=== PATIENT | female | born 1950 | race Caucasian/White ===

== ENCOUNTER 2019-01-19 11:12 | Inpatient (IN) | payer OTHER, MEDICAID ==
[~2019-01-19] VITALS: Ht 162.6 cm; Wt 74.8 kg
[~2019-01-19 11:12] MED LIST: ACET325T53 PO; AMI200 PO; ASCO-339 PO; ASCO125T PO; CARV25TA55 PO; CRAN450C PO; CYM30 PO; DIPH25CA83 PO; DOCU-144 PO; FURO-150 PO; HYDR2TAB34 PO; LEVA1.2527 NEB; LEVE500T9 PO; LEVO25TA2 PO; LIP10 PO; LORA-259 PO; LOVI40 SQ; LYR50 PO; MELO15TA13 PO; MOM PO; MORP15TA60 PO; MULT PO; NORT10CA PO; ONDA4TAB22 SL; PHEN100C4 PO; PRO40 PO; SENN8.6T19 PO; SER25 PO; TRAM50TA92 PO; ZIN220 PO
[2019-01-19 11:15] VITALS: BP_SYST 128
[2019-01-19] MEDS ORDERED: NS 500 ML IV ONE (12:00)
[2019-01-19 12:45] LABS: HEMATOCRIT 42.8 % (36-48); HEMOGLOBIN 14.4 g/dL (12.0-16.0); MEAN CORPUSCULAR VOLUME 92 fL (79.0-98.0); RED BLOOD CELL COUNT(AUTO) 4.67 MIL/uL (4.2-6.2); WHITE BLOOD COUNT (AUTO) 10.9 K/uL (4.8-10.8)
[2019-01-19 12:46] LABS: MEAN CORPUSCULAR HEMOGLOBIN 31 pg (27-31); MEAN CORPUSCULAR HGB CONC 34 % (32-36); PLATELET COUNT (AUTO) 133 K/uL (130-430); RED CELL DISTRIBUTION WIDTH 13.4 % (9.0-15.0)
[2019-01-19 12:49] LABS: CALCIUM 8.5 mg/dL (8.4-11.0); CREATININE 0.66 mg/dL (0.55-1.30); POTASSIUM 4.1 mmol/L (3.5-5.1)
[2019-01-19 12:53] LABS: PROTHROMBIN TIME 10.2 SECS (9.5-12.5)
[2019-01-19 12:54] LABS: TOTAL BILIRUBIN 0.2 mg/dL (0.0-1.0)
[2019-01-19 13:03] LABS: NEUTROPHILS % (AUTO) 73.4 % (40.0-70.0)
[2019-01-19 13:04] LABS: BASOPHILS # (AUTO) 0.1 K/uL (0.0-0.2); BASOPHILS % (AUTO) 0.7 % (0.0-2.0); EOSINOPHILS # (AUTO) 0.6 K/uL (0.0-0.4); EOSINOPHILS % (AUTO) 5.5 % (0.0-4.0); LYMPHOCYTES # (AUTO) 1.2 K/uL (1.0-5.5); LYMPHOCYTES % (AUTO) 11.4 % (20.5-51.5)
[2019-01-19] MEDS ORDERED: NACL 0.9% 1,000 ML IV ONE (15:00)
[2019-01-19] MEDS: POTASSIUM CHLORIDE 20 MEQ in D5/0.45 NS 1,000 ML IV SCH (15:03)
[2019-01-19 16:21] VITALS: BP_SYST 128
[2019-01-19 16:30] VITALS: BP_SYST 163
[2019-01-19] MEDS ORDERED: DOCUSATE SODIUM 100 MG CAPSULE PO PRN (19:15)
[2019-01-19] MEDS ORDERED: LevALBUTEROL HCL 1.25 MG/0.5 ML *CONC.* VIAL.NEB (XOPENEX CONC.) INH PRN (19:15)
[2019-01-19] MEDS ORDERED: LORazepam 1 MG TABLET PO PRN (19:15)
[2019-01-19] MEDS ORDERED: traMADol HCL HCL 50 MG TABLET (ULTRAM) PO PRN (19:15)
[2019-01-19] MEDS ORDERED: HYDROmorphone 2 MG TAB PO PRN (19:15)
[2019-01-19] MEDS ORDERED: DIPHENHYDRAMINE HCL 25 MG CAPSULE PO PRN (19:15)
[2019-01-19 20:00] VITALS: BP_SYST 141
[2019-01-19] MEDS: SENNOSIDES 8.6 MG TABLET PO SCH (21:00)
[2019-01-19] MEDS: PREGABALIN 25 MG CAPSULE (LYRICA) PO SCH (21:00)
[2019-01-19] MEDS: levETIRAcetam 500 MG TABLET PO SCH (21:57)
[2019-01-19] MEDS: NORTRIPTYLINE HCL 10 MG CAPSULE PO SCH (21:57)
[2019-01-19] MEDS: MILK OF MAGNESIA 30 ML UDC PO SCH (21:57)
[2019-01-19] MEDS: CARVEDILOL 25 MG TABLET (COREG) PO SCH (21:58)
[2019-01-19] MEDS: PHENYTOIN 100 MG CAPSULE PO SCH (21:59)
[2019-01-19] MEDS: MORPHINE SULFATE 15 MG TABLET.ER PO SCH (21:59)
[2019-01-19] MEDS: QUEtiapine FUMARATE 25 MG TABLET PO SCH (22:00)
[2019-01-19] MEDS: MELOXICAM 7.5 MG TABLET PO SCH (22:00)
[2019-01-19] MEDS: ATORVASTATIN 10 MG TABLET PO SCH (22:00)
[2019-01-19] MEDS: CEFEPIME 1 GM in D5W 50 ML IV SCH (22:05)
[2019-01-19] MEDS: LevALBUTEROL HCL 1.25 MG/0.5 ML *CONC.* VIAL.NEB (XOPENEX CONC.) INH SCH (23:28)
[2019-01-19] MEDS ORDERED: KCL 20 mEq in D5/0.45NS 1000mL 1,000 ML IV SCH ×2 (23:30→23:45)
[2019-01-19 23:33] VITALS: BP_SYST 163
[2019-01-20] MEDS ORDERED: KCL 10 mEq in D5/0.45NS 1000mL 1,000 ML IV ONE (00:16)
[2019-01-20 00:19] VITALS: BP_SYST 126
[2019-01-20] MEDS: KCL 20 mEq in D5/0.45NS 1000mL 1,000 ML IV SCH ×2 (00:35→17:23)
[2019-01-20 03:52] LABS: BILIRUBIN,URINE NEGATIVE (NEGATIVE); BLOOD, URINE NEGATIVE (NEGATIVE); CLARITY/URINE CLOUDY (CLEAR); COLOR,URINE YELLOW (YELLOW); GLUCOSE,URINE NEGATIVE (NEGATIVE); KETONES,URINE NEGATIVE (NEGATIVE); LEUKOCYTE ESTERASE ,URINE 1+ (NEGATIVE); NITRITE, URINE POSITIVE (NEGATIVE); PROTEIN URINE 1+ (NEGATIVE); UROBILINOGEN,URINE 0.2 (0.2-1.0)
[2019-01-20 04:06] LABS: BACTERIA,URINE MODERATE /HPF (None Seen); RBC,URINE 0-3 /HPF (0-3)
[2019-01-20] MEDS: PANTOPRAZOLE SODIUM 40 MG TAB PO SCH (06:29)
[2019-01-20] MEDS: LEVOTHYROXINE SODIUM 0.025 MG TABLET PO SCH (06:29)
[2019-01-20] MEDS: LevALBUTEROL HCL 1.25 MG/0.5 ML *CONC.* VIAL.NEB (XOPENEX CONC.) INH SCH ×3 (07:27→23:28)
[2019-01-20 08:25] VITALS: BP_SYST 111
[2019-01-20] MEDS: CEFEPIME 1 GM in D5W 50 ML IV SCH ×2 (08:39→21:36)
[2019-01-20] MEDS: CARVEDILOL 25 MG TABLET (COREG) PO SCH ×2 (08:40→21:37)
[2019-01-20] MEDS: MELOXICAM 7.5 MG TABLET PO SCH ×2 (08:40→21:38)
[2019-01-20] MEDS: MORPHINE SULFATE 15 MG TABLET.ER PO SCH ×2 (08:40→21:38)
[2019-01-20] MEDS: levETIRAcetam 500 MG TABLET PO SCH ×2 (08:40→21:38)
[2019-01-20] MEDS: ASCORBIC ACID 500 MG TABLET PO SCH (08:41)
[2019-01-20] MEDS: ACETAMINOPHEN 325 MG TABLET PO SCH (08:41)
[2019-01-20] MEDS: MULTIVITAMINS TAB 1 TABLET PO SCH (08:41)
[2019-01-20] MEDS: DULoxetine HCL 30 MG CAPSULE.DR (CYMBALTA) PO SCH (08:41)
[2019-01-20] MEDS: QUEtiapine FUMARATE 25 MG TABLET PO SCH ×3 (08:41→21:39)
[2019-01-20] MEDS: PREGABALIN 25 MG CAPSULE (LYRICA) PO SCH ×2 (08:41→21:38)
[2019-01-20] MEDS: AMIODARONE HCL 200 MG TABLET PO SCH (08:41)
[2019-01-20] MEDS: ENOXAPARIN SODIUM 40 MG/0.4 ML SYRINGE SQ SCH (08:42)
[2019-01-20] MEDS ORDERED: NON-FORMULARY MEDICATION (Ascorbic Acid (Vitamin C) 500 MG) PO SCH (09:00)
[2019-01-20 12:31] VITALS: BP_SYST 136
[2019-01-20 16:54] VITALS: BP_SYST 137
[2019-01-20 20:00] VITALS: BP_SYST 135
[2019-01-20] MEDS: SENNOSIDES 8.6 MG TABLET PO SCH (21:00)
[2019-01-20] MEDS: MILK OF MAGNESIA 30 ML UDC PO SCH (21:38)
[2019-01-20] MEDS: PHENYTOIN 100 MG CAPSULE PO SCH (21:38)
[2019-01-20] MEDS: ATORVASTATIN 10 MG TABLET PO SCH (21:38)
[2019-01-20] MEDS: NORTRIPTYLINE HCL 10 MG CAPSULE PO SCH (21:39)
[2019-01-20 22:55] VITALS: BP_SYST 125
[2019-01-21] VITALS: BP_SYST 138
[2019-01-21] MEDS: PANTOPRAZOLE SODIUM 40 MG TAB PO SCH (06:03)
[2019-01-21] MEDS: LEVOTHYROXINE SODIUM 0.025 MG TABLET PO SCH (06:03)
[2019-01-21] MEDS: KCL 20 mEq in D5/0.45NS 1000mL 1,000 ML IV SCH ×2 (06:04→19:16)
[2019-01-21] MEDS: LevALBUTEROL HCL 1.25 MG/0.5 ML *CONC.* VIAL.NEB (XOPENEX CONC.) INH SCH ×3 (07:47→23:23)
[2019-01-21 08:00] VITALS: BP_SYST 115
[2019-01-21] MEDS: AMIODARONE HCL 200 MG TABLET PO SCH (09:00)
[2019-01-21] MEDS: CARVEDILOL 25 MG TABLET (COREG) PO SCH ×2 (09:00→21:27)
[2019-01-21] MEDS: CEFEPIME 1 GM in D5W 50 ML IV SCH ×2 (09:33→21:17)
[2019-01-21] MEDS: ACETAMINOPHEN 325 MG TABLET PO SCH (09:34)
[2019-01-21] MEDS: PREGABALIN 25 MG CAPSULE (LYRICA) PO SCH ×2 (09:34→21:22)
[2019-01-21] MEDS: QUEtiapine FUMARATE 25 MG TABLET PO SCH ×3 (09:34→21:33)
[2019-01-21] MEDS: ASCORBIC ACID 500 MG TABLET PO SCH (09:35)
[2019-01-21] MEDS: MORPHINE SULFATE 15 MG TABLET.ER PO SCH ×2 (09:35→21:00)
[2019-01-21] MEDS: DULoxetine HCL 30 MG CAPSULE.DR (CYMBALTA) PO SCH (09:35)
[2019-01-21] MEDS: levETIRAcetam 500 MG TABLET PO SCH ×2 (09:35→21:27)
[2019-01-21] MEDS: MULTIVITAMINS TAB 1 TABLET PO SCH (09:35)
[2019-01-21] MEDS: MELOXICAM 7.5 MG TABLET PO SCH ×2 (09:36→21:26)
[2019-01-21] MEDS: ENOXAPARIN SODIUM 40 MG/0.4 ML SYRINGE SQ SCH (09:41)
[2019-01-21 12:45] VITALS: BP_SYST 122
[2019-01-21 16:27] VITALS: BP_SYST 128
[2019-01-21 20:30] VITALS: BP_SYST 151
[2019-01-21] MEDS: SENNOSIDES 8.6 MG TABLET PO SCH (21:00)
[2019-01-21] MEDS: ATORVASTATIN 10 MG TABLET PO SCH (21:26)
[2019-01-21] MEDS: NORTRIPTYLINE HCL 10 MG CAPSULE PO SCH (21:27)
[2019-01-21] MEDS: MILK OF MAGNESIA 30 ML UDC PO SCH (21:27)
[2019-01-21] MEDS: PHENYTOIN 100 MG CAPSULE PO SCH (21:32)
[2019-01-22 00:25] VITALS: BP_SYST 102
[2019-01-22] MEDS: PANTOPRAZOLE SODIUM 40 MG TAB PO SCH (06:00)
[2019-01-22] MEDS: KCL 20 mEq in D5/0.45NS 1000mL 1,000 ML IV SCH (06:08)
[2019-01-22] MEDS: LEVOTHYROXINE SODIUM 0.025 MG TABLET PO SCH (06:09)
[2019-01-22 06:47] LABS: CALCIUM 8.1 mg/dL (8.4-11.0); CREATININE 0.96 mg/dL (0.55-1.30); POTASSIUM 4.5 mmol/L (3.5-5.1)
[2019-01-22 06:54] LABS: PHOSPHORUS 3.9 mg/dL (2.7-4.5)
[2019-01-22 07:52] VITALS: BP_SYST 158
[2019-01-22 07:59] LABS: HEMOGLOBIN 13.2 g/dL (12.0-16.0); RED BLOOD CELL COUNT(AUTO) 4.26 MIL/uL (4.2-6.2); WHITE BLOOD COUNT (AUTO) 7.7 K/uL (4.8-10.8)
[2019-01-22 08:00] LABS: HEMATOCRIT 39.7 % (36-48); MEAN CORPUSCULAR HEMOGLOBIN 31 pg (27-31); MEAN CORPUSCULAR HGB CONC 33 % (32-36); MEAN CORPUSCULAR VOLUME 93 fL (79.0-98.0); PLATELET COUNT (AUTO) 154 K/uL (130-430)
[2019-01-22 08:01] LABS: BASOPHILS % (AUTO) 0.6 % (0.0-2.0); EOSINOPHILS # (AUTO) 0.6 K/uL (0.0-0.4); LYMPHOCYTES % (AUTO) 12.6 % (20.5-51.5); MONOCYTES % (AUTO) 13.1 % (1.7-9.3); NEUTROPHILS # (AUTO) 5.1 K/uL (1.8-7.7); NEUTROPHILS % (AUTO) 65.7 % (40.0-70.0)
[2019-01-22] MEDS: levETIRAcetam 500 MG TABLET PO SCH (09:00)
[2019-01-22] MEDS: ASCORBIC ACID 500 MG TABLET PO SCH (09:00)
[2019-01-22] MEDS: CARVEDILOL 25 MG TABLET (COREG) PO SCH (09:00)
[2019-01-22] MEDS: AMIODARONE HCL 200 MG TABLET PO SCH (09:00)
[2019-01-22] MEDS: PREGABALIN 25 MG CAPSULE (LYRICA) PO SCH (09:00)
[2019-01-22] MEDS: QUEtiapine FUMARATE 25 MG TABLET PO SCH ×2 (09:00→14:32)
[2019-01-22] MEDS: ACETAMINOPHEN 325 MG TABLET PO SCH (09:00)
[2019-01-22] MEDS: MULTIVITAMINS TAB 1 TABLET PO SCH (09:00)
[2019-01-22] MEDS: MORPHINE SULFATE 15 MG TABLET.ER PO SCH (09:00)
[2019-01-22] MEDS: CEFEPIME 1 GM in D5W 50 ML IV SCH (09:26)
[2019-01-22] MEDS: ENOXAPARIN SODIUM 40 MG/0.4 ML SYRINGE SQ SCH (09:27)
[2019-01-22] MEDS: MELOXICAM 7.5 MG TABLET PO SCH (09:29)
[2019-01-22] MEDS: DULoxetine HCL 30 MG CAPSULE.DR (CYMBALTA) PO SCH (09:30)
[2019-01-22] MEDS: POTASSIUM CHLORIDE 20 MEQ in D5/0.45 NS 1,000 ML IV SCH ×4 (09:39→10:23)
[2019-01-22] MEDS: LevALBUTEROL HCL 1.25 MG/0.5 ML *CONC.* VIAL.NEB (XOPENEX CONC.) INH SCH ×2 (10:55→15:13)
[2019-01-22 13:02] VITALS: BP_SYST 154
[2019-01-22 16:51] VITALS: BP_SYST 163
[2019-01-22 17:33] VITALS: BP_SYST 150
== END 2019-01-22 19:36 | DRG 689 ==
LOC: SED 11:12 → SMU 15:03
PROVIDERS: ADMIT Family Medicine; ATTEND Family Medicine
DX: N39.0 Urinary tract infection, site not specified (principal); G93.41 Metabolic encephalopathy; J44.1 Chronic obstructive pulmonary disease with (acute) exacerbation; E86.0 Dehydration; D64.9 Anemia, unspecified; G89.29 Other chronic pain; F17.200 Nicotine dependence, unspecified, uncomplicated; G40.909 Epilepsy, unspecified, not intractable, without status epilepticus; I10 Essential (primary) hypertension; I48.2 Chronic atrial fibrillation; M19.90 Unspecified osteoarthritis, unspecified site; B96.4 Proteus (mirabilis) (morganii) as the cause of diseases classified elsewhere; M54.9 Dorsalgia, unspecified; I73.9 Peripheral vascular disease, unspecified; Z89.612 Acquired absence of left leg above knee; Z89.611 Acquired absence of right leg above knee; Z79.899 Other long term (current) drug therapy
CPT/HCPCS: 36415; 70450-TC; 71045; 80048; 80053; 81000-TC; 83605; 83735-TC; 84100-TC; 84484; 85025; 85610-TC; 85730-TC; 87040-TC; 87081; 87086; 87186-TC; 93005; 94640; 94760; 96360; 96361; 99285; A5061; J0692; J1650; J3480; J7060; J7612